=== PATIENT | female | born 1970 | race American Indian/Alaskan Native ===

== ENCOUNTER 2016-12-05 14:17 | Inpatient (IN) | payer MEDICAID ==
[2016-12-05 14:47] VITALS: BMI 30.9
--- NOTE | 2016-12-05 14:58 | ED PDOC ---
Arrival/HPI <Rosetta Clayton - Last Filed: 12/05/16 17:56> - General Historian: Patient - History of Present Illness Quality: Aching Context: Home <HutchinsSkylar green P - Last Filed: 12/05/16 20:21> - General Chief Complaint: Abdominal Pain Time Seen by Provider: 12/05/16 14:57 - History of Present Illness Narrative History of Present Illness (Text): 12/05/16 14:57 This 46 yo female with medical history of Migraine, presents to this ED c/o Migraines since last night. Patient stated a couple hours after eating dinner, she had a single episode of diarrhea with abdominal pain. She became mild nausea, and developed a Migraine SHARP, as per patient. Patient continues with SHARP , mild nausea, and RLQ abdominal pain, and body aches. Denies fever, sob, cp, wheezing, rash, or dizziness. (Skylar Hutchins) Past Medical History - Provider Review Nursing Documentation Reviewed: Yes - Psychiatric Hx Substance Use: No - Surgical History Hx Section: Yes <Skylar Hutchins P - Last Filed: 12/05/16 20:21> Family/Social History - Physician Review Nursing Documentation Reviewed: Yes Family/Social History: No Known Family HX Smoking Status: Never Smoked Hx Alcohol Use: No Hx Substance Use: No <Skylar Hutchins P - Last Filed: 12/05/16 20:21> Allergies/Home Meds <MatildeRosetta - Last Filed: 12/05/16 17:56> <Skylar Hutchins P - Last Filed: 12/05/16 20:21> Allergies/Adverse Reactions: Allergies No Known Allergies Allergy (Verified 12/05/16 14:47) Home Medications: Home Meds Medication Instructions Recorded Confirmed No Known Home Med 12/05/16 12/05/16 Review of Systems - Review of Systems Constitutional: Normal. absent: Fatigue, Weight Change Eyes: Normal ENT: Normal Respiratory: Normal Cardiovascular: Normal Gastrointestinal: Abdominal Pain, Diarrhea, Nausea, Vomiting. absent: Constipation, Hematemesis Genitourinary Female: Normal Musculoskeletal: Normal Skin: Normal Neurological: Headache. absent: Dizziness, Gait Changes, Speech Changes, Facial Droop, Disequilibrium Endocrine: Normal Hemo/Lymphatic: Normal Psychiatric: Normal <Skylar Hutchins P - Last Filed: 12/05/16 20:21> Physical Exam Temperature: Afebrile Blood Pressure: Normal Pulse: Regular Respiratory Rate: Normal Appearance: Positive for: Well-Appearing, Non-Toxic, Comfortable Pain Distress: Mild Mental Status: Positive for: Alert and Oriented X 3 - Systems Exam Head: Present: Atraumatic, Normocephalic Pupils: Present: PERRL Extroacular Muscles: Present: EOMI Conjunctiva: Present: Normal Mouth: Present: Moist Mucous Membranes Neck: Present: Normal Range of Motion. No: Meningeal Signs, MIDLINE TENDERNESS , Paraspinal Tenderness Respiratory/Chest: Present: Clear to Auscultation, Good Air Exchange. No: Respiratory Distress, Accessory Muscle Use, Wheezes, Retracting, Rhonchi Cardiovascular: Present: Regular Rate and Rhythm, Normal S1, S2. No: Murmurs Abdomen: Present: Tenderness (Mild RLQ tenderness.), Normal Bowel Sounds. No: Distention, Peritoneal Signs, Rebound, Guarding Back: Present: Normal Inspection. No: CVA Tenderness Upper Extremity: Present: Normal Inspection, Normal ROM, Neurovascularly Intact , Capillary Refill < 2s. No: Cyanosis, Edema Lower Extremity: Present: Normal Inspection, NORMAL PULSES, Normal ROM, Neurovascularly Intact, Capillary Refill < 2 s. No: Edema Neurological: Present: GCS=15, CN II-XII Intact, Speech Normal Skin: Present: Warm, Dry, Normal Color. No: Rashes Psychiatric: Present: Alert, Oriented x 3 <Skylar Hutchins P - Last Filed: 12/05/16 20:21> Vital Signs Temp Pulse Resp BP Pulse Ox 12/05/16 19:20 98.6 F 78 19 146/78 99 12/05/16 14:47 97.7 F 64 16 140/87 96 Medical Decision Making <Rosetta Clayton - Last Filed: 12/05/16 17:56> Re-evaluation Time: 18:00 Reassessment Condition: Re-examined, Improving,but remains with symptoms - Lab Interpretations Interpretation: Abnormal lab values - EKG Interpretation Interpreted by ED Physician: Yes (sinus bradycardia @ 54 bpm. Normal interval) Type: 12 lead EKG Comparison: No previous EKG avail. <Skylar Hutchins P - Last Filed: 12/05/16 20:21> ED Course and Treatment: 12/05/16 17:[address] Carvajal regarding patient c/o abdominal pain and migraine. I reviewed CT scan result with Dr. Carvajal which reads as appendicitis. She agrees with admission under her service. (Skylar Hutchins) - Lab Interpretations Lab Results: 12/05/16 15:12 12/05/16 15:12 Lab Results 12/05/16 17:40: Blood Type A POSITIVE, Antibody Screen Negative, BBK History Checked No verified bt 12/05/16 17:33: PT 11.0, INR 1.02, APTT 26.2 12/05/16 15:25: Urine Color Yellow, Urine Appearance Clear, Urine pH 6.5, Ur Specific Magnolia 1.020, Urine Protein Negative, Urine Glucose (UA) Negative, Urine Ketones Negative, Urine Blood Small H, Urine Nitrate Negative, Urine Bilirubin Negative, Urine Urobilinogen 0.2, Ur Leukocyte Esterase Negative, Urine RBC 0 - 2, Urine WBC Negative, Ur Epithelial Cells 4 - 5, Urine Bacteria Neg, Urine HCG, Qual Negative 12/05/16 15:15: Influenza Typ A,B (EIA) Negative for flu a/b 12/05/16 15:12: WBC 15.3 H, RBC 4.44, Hgb 11.5 L, Hct 35.7 L, MCV 80.4, MCH 25.9 , MCHC 32.2, RDW 15.6 H, Plt Count 332, MPV 10.0, Gran % 75.2 H, Lymph % (Auto) 19.5 L, Becker % (Auto) 4.3, Eos % (Auto) 0.7 L, Baso % (Auto) 0.3, Gran # 11.55 H , Lymph # 3.0, Becker # 0.7 H, Eos # 0.1, Baso # 0.04, Sodium 139, Potassium 3.4 L , Chloride 102, Carbon Dioxide 23, Anion Gap 17, BUN 15, Creatinine 0.9, Est GFR ( Amer) > 60, Est GFR (Non-Af Amer) > 60, Random Glucose 110, Calcium 9.6, Magnesium 1.9, Total Bilirubin 0.7, AST 22, ALT 26, Alkaline Phosphatase 58, Total Protein 7.4, Albumin 4.1, Globulin 3.3, Albumin/Globulin Ratio 1.2, Lipase 75 - RAD Interpretation Narrative RAD Interpretations (Text): 12/05/16 17:24 Accession No. : [id number] Patient Name / ID : ISABEL KING / [id number] Exam Date : 12/05/2016 16:45:37 ( Approved ) Study Comment : Sex / Age : F / 46Y Creator : WANDA MOTT MD Dictator : WANDA MOTT MD Catering Director : Human Resources Administrator : WANDA MOTT MD Approver2 : Report Date : 12/05/2016 17:12:33 My Comment : PROCEDURE: CT Abdomen and Pelvis with contrast HISTORY: RLQ pain r/o appy COMPARISON: None. TECHNIQUE: Helical CT scan of the abdomen and pelvis was performed after intravenous administration of contrast. Oral contrast was not administered. Contrast dose: Acute appendicitis. No evidence of perforation or abscess. 100 mL Omnipaque 300 Radiation dose: Total exam DLP = 791.38 mGy-cm. FINDINGS: LOWER THORAX: The lung bases are clear. LIVER: There is mild hepatomegaly, Lucas's lobe configuration and diffuse low- attenuation in the liver. There is no intra or extrahepatic biliary ductal dilatation. GALLBLADDER AND BILE DUCTS: There are no calcified gallstones. There is mild pericholecystic fluid. PANCREAS: The pancreas is normal in size and there is homogeneous enhancement without ductal dilatation or focal mass. SPLEEN: The spleen is normal in size and there is homogeneous enhancement. ADRENALS: Both adrenal glands are normal in appearance without discrete nodule. KIDNEYS AND URETERS: Both kidneys are normal in size and there is homogeneous enhancement without solid or cystic mass. There is no hydronephrosis. VASCULATURE: There is normal appearance of the abdominal vasculature. There is no evidence of aortic aneurysm BOWEL: The small bowel loops are normal in caliber. The colon is decompressed. There is no evidence of bowel dilatation or obstruction. APPENDIX: The appendix is fluid filled, distended and measures 12 mm in diameter. There is an appendicolith in the proximal appendix and inflammatory changes surrounding the appendix in the right lower quadrant. PERITONEUM: No free fluid. No free air. LYMPH NODES: No enlarged lymph nodes. BLADDER: Normal in appearance. REPRODUCTIVE: The uterus is normal in size and lobular. BONES: No acute fracture. Within normal limits for the patient's age. OTHER FINDINGS: None. IMPRESSION: Acute appendicitis. No evidence of perforation or abscess. Hepatomegaly and hepatic steatosis. 12/05/16 20:21 CXR: NAD (Hutchins,Nahim P) Radiology Orders: 12/05/16 15:40 ABD & PELVIS IV CONTRAST ONLY [CT] Stat - Medication Orders Current Medication Orders: Hydromorphone HCl (Dilaudid) 1 mg IVP Q4H PRN PRN Reason: Pain, moderate (4-7) Piperacillin Sod/Tazobactam Sod (Zosyn 4.5 Gm In Ns 100ml) 100 mls @ 200 mls/ hr IVPB Q6 MALIHA PRN Reason: Protocol Stop: 12/06/16 06:29 Ondansetron HCl (Zofran Inj) 4 mg IVP Q4 PRN PRN Reason: Pain, moderate (4-7) Pantoprazole Sodium (Protonix Inj) 40 mg IVP DAILY MALIHA Discontinued Medications Diphenhydramine HCl (Benadryl) 25 mg IVP STAT STA Stop: 12/05/16 15:08 Last Admin: 12/05/16 15:25 Dose: 25 MG IVP Administration Document 12/05/16 15:25 SE (Rec: 12/05/16 15:25 [id number]) Charges for Administration # of IVP Administrations 1 Sodium Chloride (Sodium Chloride 0.9%) 1,000 mls @ 1,000 mls/hr IV .Q1H STA Stop: 12/05/16 16:04 Last Admin: 12/05/16 15:21 Dose: 1,000 MLS/HR eMAR Start Stop Document 12/05/16 15:21 SE (Rec: 12/05/16 15:21 [id number]) Intravenous Solution Start Date 12/05/16 Start Time 15:21 Piperacillin Sod/Tazobactam Sod (Zosyn 4.5 Gm In Ns 100ml) 100 mls @ 200 mls/ hr IVPB STAT STA PRN Reason: Protocol Stop: 12/05/16 18:14 Last Admin: 12/05/16 17:50 Dose: 200 MLS/HR Comments: med not scanning, confirmed with second RN , RUSTY Cornejo RN eMAR Start Stop Document 12/05/16 17:50 SE (Rec: 12/05/16 17:50 SE [id number]) Intravenous Solution Start Date 12/05/16 Start Time 17:50 Iohexol (Omnipaque 350 100 Ml) Confirm Administered Dose 350 mg .ROUTE .STK-MED ONE Stop: 12/05/16 16:33 Ketorolac Tromethamine (Toradol) 15 mg IVP STAT STA Stop: 12/05/16 15:09 Last Admin: 12/05/16 15:25 Dose: 15 MG IVP Administration Document 12/05/16 15:25 SE (Rec: 12/05/16 15:25 SE [id number]) Charges for Administration # of IVP Administrations 1 Metoclopramide HCl (Reglan) 10 mg IVP STAT STA Stop: 12/05/16 15:08 Last Admin: 12/05/16 15:25 Dose: 10 MG IVP Administration Document 12/05/16 15:25 SE (Rec: 12/05/16 15:25 SE [id number]) Charges for Administration # of IVP Administrations 1 Morphine Sulfate (Morphine) 2 mg IVP STAT STA Stop: 12/05/16 19:05 Last Admin: 12/05/16 19:10 Dose: 2 MG MAR Pain Assessment Document 12/05/16 19:10 SE (Rec: 12/05/16 19:10 SE [id number]) Pain Reassessment Is this a pain reassessment? No Sleep Is patient sleeping during reassessment? No Presence of Pain Presence of Pain Yes Pain Scale Used Pain Scale Used Numeric IVP Administration Document 12/05/16 19:10 SE (Rec: 12/05/16 19:10 SE [id number]) Charges for Administration # of IVP Administrations 1 Ondansetron HCl (Zofran Inj) 4 mg IVP STAT STA Stop: 12/05/16 19:05 Last Admin: 12/05/16 19:09 Dose: 4 MG IVP Administration Document 12/05/16 19:09 SE (Rec: 12/05/16 19:09 SE [id number]) Charges for Administration # of IVP Administrations 1 - PA / RECORDS MANAGEMENT SPECIALIST / Resident Statement / has reviewed & agrees with the documentation as recorded. / has examined the patient and agrees with the treatment plan. <Rosetta Clayton - Last Filed: 12/05/16 17:56> Disposition/Present on Arrival <Rosetta Clayton - Last Filed: 12/05/16 17:56> - Present on Arrival Any Indicators Present on Arrival: No History of DVT/PE: No History of Uncontrolled Diabetes: No Urinary Catheter: No History of Decub. Ulcer: No History Surgical Site Infection Following: None - Disposition Have Diagnosis and Disposition been Completed?: Yes Disposition Time: 19:38 Patient Plan: Admission <Skylar Hutchins - Last Filed: 12/05/16 20:21> - Disposition Diagnosis: Acute appendicitis
[2016-12-05] MEDS ORDERED: Sodium Chloride 0.9% 1,000 ML IV STA (15:05)
[2016-12-05] MEDS ORDERED: DiphenhydrAMINE 50 mg/ml Inj IVP STA (15:07)
[2016-12-05 15:18] LABS: ADD MANUAL DIFF? NO
[2016-12-05 15:23] LABS: BASO # 0.04 [, K/mm3] (0.0-2.0); BASO % 0.3 % (0.0-3.0); EOS # 0.1 (0.0-0.7); EOS % 0.7 % (1.5-5.0); GRAN # 11.55 (1.4-6.5); GRAN % 75.2 % (50.0-68.0); HEMATOCRIT 35.7 % (36.0-48.0); LYMPH % 19.5 % (22.0-35.0); MEAN CELL VOLUME 80.4 fL (80.0-105.0); MEAN CORPUSCULAR HEMOGLOBIN 25.9 pg (25.0-35.0); MEAN CORPUSCULAR HGB CONC 32.2 g/dl (31.0-37.0); MONO # 0.7 (0.1-0.6); MONO % 4.3 % (1.0-6.0); PLATELET COUNT 332 [, 10^3/uL] (120.0-450.0); RED CELL DISTRIBUTION WIDTH 15.6 % (11.5-14.5); WHITE BLOOD COUNT 15.3 [, 10^3/ul] (4.5-11.0)
[2016-12-05 15:37] LABS: ALB/GLOB RATIO 1.2 (1.1-1.8); ALKALINE PHOSPHATASE 58 U/L (38-133); ALT/SGPT 26 U/L (7-56); AST/SGOT 22 U/L (15-39); BILIRUBIN,TOTAL 0.7 mg/dL (0.2-1.3); BLOOD UREA NITROGEN 15 mg/dL (7-21); CALCIUM 9.6 mg/dL (8.4-10.5); CARBON DIOXIDE 23 mmol/L (21-33); CHLORIDE 102 mmol/L (98-107); GFR AFRICAN-AMERICAN > 60; GLUCOSE,RANDOM 110 mg/dL (70-110); LIPASE 75 U/L (23-300); MAGNESIUM 1.9 mg/dL (1.7-2.2); POTASSIUM 3.4 mmol/L (3.6-5.0); SODIUM 139 mmol/L (132-148); TOTAL PROTEIN 7.4 g/dL (5.8-8.3)
[2016-12-05 15:50] LABS: PH,URINE 6.5 (4.7-8.0); URINE BILIRUBIN NEGATIVE (NEGATIVE); URINE BLOOD SMALL (NEGATIVE); URINE GLUCOSE (UA) NEGATIVE (NEGATIVE); URINE KETONE NEGATIVE (NEGATIVE); URINE LEUKOCYTE ESTERASE NEGATIVE Leu/uL (NEGATIVE); URINE PROTEIN NEGATIVE mg/dL (<30 mg/dL); URINE UROBILINOGEN 0.2 E.U./dL (<1 E.U./dL)
[2016-12-05] MEDS ORDERED: Iohexol 350 MG/100 ML VIAL ONE (16:32)
[2016-12-05 16:40] LABS: URINE APPEARANCE CLEAR (CLEAR); URINE COLOR YELLOW (YELLOW)
[2016-12-05 16:52] LABS: URINE RBC 0 - 2 /hpf (0-2)
[2016-12-05 16:53] LABS: URINE BACTERIA NEG (NEG); URINE WBC NEGATIVE /hpf (0-6)
--- NOTE | 2016-12-05 17:14 | CT ---
PROCEDURE: CT Abdomen and Pelvis with contrast HISTORY: RLQ pain r/o appy COMPARISON: None. TECHNIQUE: Helical CT scan of the abdomen and pelvis was performed after intravenous administration of contrast. Oral contrast was not administered. Contrast dose: Acute appendicitis. No evidence of perforation or abscess. 100 mL Omnipaque 300 Radiation dose: Total exam DLP = 791.38 mGy-cm. FINDINGS: LOWER THORAX: The lung bases are clear. LIVER: There is mild hepatomegaly, Lucas's lobe configuration and diffuse low-attenuation in the liver. There is no intra or extrahepatic biliary ductal dilatation. GALLBLADDER AND BILE DUCTS: There are no calcified gallstones. There is mild pericholecystic fluid. PANCREAS: The pancreas is normal in size and there is homogeneous enhancement without ductal dilatation or focal mass. SPLEEN: The spleen is normal in size and there is homogeneous enhancement. ADRENALS: Both adrenal glands are normal in appearance without discrete nodule. KIDNEYS AND URETERS: Both kidneys are normal in size and there is homogeneous enhancement without solid or cystic mass. There is no hydronephrosis. VASCULATURE: There is normal appearance of the abdominal vasculature. There is no evidence of aortic aneurysm BOWEL: The small bowel loops are normal in caliber. The colon is decompressed. There is no evidence of bowel dilatation or obstruction. APPENDIX: The appendix is fluid filled, distended and measures 12 mm in diameter. There is an appendicolith in the proximal appendix and inflammatory changes surrounding the appendix in the right lower quadrant. PERITONEUM: No free fluid. No free air. LYMPH NODES: No enlarged lymph nodes. BLADDER: Normal in appearance. REPRODUCTIVE: The uterus is normal in size and lobular. BONES: No acute fracture. Within normal limits for the patient's age. OTHER FINDINGS: None. IMPRESSION: Acute appendicitis. No evidence of perforation or abscess. Hepatomegaly and hepatic steatosis.
[2016-12-05] MEDS ORDERED: Piperacill/Tazo 4.5gm in NS 100 ML IVPB STA (17:45)
[2016-12-05 17:54] LABS: INR 1.02 (0.93-1.08); PARTIAL THROMBOPLASTIN TIME 26.2 Seconds (23.7-30.8)
[2016-12-05] MEDS ORDERED: Morphine 2 mg/ml ISec IVP STA (19:04)
--- NOTE | 2016-12-05 19:42 | CP.PCM.HP ---
History of Present Illness - History of Present Illness History of Present Illness: HISTORY AND PHYSICAL FOR DR. GUTIERREZ 46F presents to [facility] ED with abdominal pain that started yesterday night. Patient describes pain as uncomfortable, localized in the lower abdomen and no radiation. Patient states pain is associated with nausea/vomiting/diarrhea. She denies fevers, chill. She states she was not able to tolerate the food she ate. earlier this morning. Patient is also associated with headache. PMH: Migraines PSH: C-sec (5years ago) Social: denies tobacco, alcohol, illicit drugs Allergies: NKDA Present on Admission - Present on Admission Any Indicators Present on Admission: No Past Patient History - Past Social History Smoking Status: Never Smoked - PSYCHIATRIC Hx Substance Use: No - SURGICAL HISTORY Hx Section: Yes Meds Allergies/Adverse Reactions: Allergies Allergy/AdvReac Type Severity Reaction Status Date / Time No Known Allergies Allergy Verified 12/05/16 14:47 Physical Exam - Constitutional Appears: Non-toxic, No Acute Distress - Head Exam Head Exam: ATRAUMATIC - Eye Exam Eye Exam: EOMI, PERRL Pupil Exam: PERRL - ENT Exam ENT Exam: Mucous Membranes Moist - Respiratory Exam Respiratory Exam: Clear to Auscultation Bilateral, NORMAL BREATHING PATTERN - Cardiovascular Exam Cardiovascular Exam: REGULAR RHYTHM, +S1, +S2 - GI/Abdominal Exam GI & Abdominal Exam: Normal Bowel Sounds, Soft, Tenderness (mainly on the RLQ, positive mcburney sign and obturator sign). absent: Distended, Firm, Guarding, Hernia, Rebound, Rigid - Extremities Exam Extremities exam: Positive for: normal inspection - Neurological Exam Neurological exam: Alert, Oriented x3 - Psychiatric Exam Psychiatric exam: Normal Affect, Normal Mood - Skin Skin Exam: Dry, Intact, Normal Color, Warm Results - Vital Signs Recent Vital Signs: Last Vital Signs Temp 98.6 F 12/05/16 19:20 Pulse 78 12/05/16 19:20 Resp 19 12/05/16 19:20 BP 146/78 12/05/16 19:20 Pulse Ox 99 12/05/16 19:20 - Labs Result Diagrams: 12/05/16 15:12 12/05/16 15:12 Labs: Laboratory Results - last 24 hr 12/05/16 18:11 Blood Type Confirm A POSITIVE Assessment & Plan - Assessment and Plan (Free Text) Assessment: 46F presents with abdominal pain, due to acute appendicitis CT scan: [id number], inflammation surrounding the appendix, no perf no abscess Plan: -NPO, pain control, Antibiotics -pre-op patient -OR tonight for laparoscopic appendectomy Discussed with Dr. Wei Gu, PGY1
[2016-12-05] MEDS ORDERED: HYDROmorphone 1 mg/ml ISec IVP PRN (20:03)
[2016-12-05] MEDS ORDERED: Propofol 10 mg/ml Inj (20 ML) ONE (20:39)
[2016-12-05] MEDS ORDERED: Rocuronium 10 mg/ml (5 ml) ONE (20:40)
[2016-12-05] MEDS ORDERED: Lidocaine 1% Inj (20ml) ONE (20:40)
[2016-12-05] MEDS ORDERED: Succinylcholine 200 mg/10 ml Inj IV ONE (20:43)
[2016-12-05] MEDS ORDERED: Liquid Adhesive TOP ONE (22:09)
[2016-12-05] MEDS ORDERED: Lactated Ringer's 1,000 ML IV SCH (22:30)
[2016-12-05] MEDS ORDERED: HYDROmorphone 0.5 mg/0.5 ml ISec IVP PRN (22:30)
[2016-12-05] MEDS ORDERED: Oxycodone/Acetaminophen 5/325 mg Tab PO PRN (22:31)
--- NOTE | 2016-12-05 22:31 | PCM.SURG1 ---
Surgeon's Initial Post Op Note - Surgeon's Notes Surgeon: Wei Temperer: Brittanie Pre-Operative Diagnosis: Acute appendicitis Operative Findings: inflamed appendix Post-Operative Diagnosis: acute appendicitis Operation Performed: laparoscopic appendectomy Specimen/Specimens Removed: appendix Estimated Blood Loss: EBL {In ML}: 30 Date of Surgery/Procedure: 12/05/16 Time of Surgery/Procedure: 21:30
[2016-12-06] MEDS: Piperacill/Tazo 4.5gm in NS 100 ML IVPB SCH ×2 (00:36→05:20)
[2016-12-06 04:29] VITALS: PULSE 58
--- NOTE | 2016-12-06 06:25 | CP.PCM.PN ---
Subjective - Date & Time of Evaluation Date of Evaluation: 12/06/16 Time of Evaluation: 06:23 - Subjective Subjective: SURGERY NOTE FOR DR. GUTIERREZ 46F seen and examined at bedside. AUDELIA. Patient is resting comfortably. Admits to mild abdominal pain, denies nausea/vomiting, tolerating her clear liquid diet. Denies flatus/BM. Objective - Vital Signs/Intake and Output Vital Signs (last 24 hours): Temp Pulse Resp BP Pulse Ox 97.4 F L 58 L 18 123/81 99 12/05/16 21:25 12/05/16 21:25 12/05/16 21:25 12/05/16 21:25 12/05/16 19:20 Intake and Output: 12/05/16 12/06/16 18:59 06:59 Intake Total 240 Balance 240 - Medications Medications: Current Medications Heparin Sodium (Porcine) (Heparin) 5,000 units SC Q12 MALIHA PRN Reason: Protocol Piperacillin Sod/Tazobactam Sod (Zosyn 4.5 Gm In Ns 100ml) 100 mls @ 200 mls/ hr IVPB Q6 MALIHA PRN Reason: Protocol Stop: 12/06/16 06:29 Last Admin: 12/06/16 05:20 Dose: 200 mls/hr Ondansetron HCl (Zofran Inj) 4 mg IVP Q4 PRN PRN Reason: Pain, moderate (4-7) Oxycodone/Acetaminophen (Percocet 5/325 Mg Tab) 1 tab PO Q4H PRN PRN Reason: Pain, moderate (4-7) Stop: 12/08/16 22:32 Pantoprazole Sodium (Protonix Inj) 40 mg IVP DAILY [facility] - Labs Labs: PT 11.0 Seconds (9.9-11.8) 12/05/16 17:33 INR 1.02 (0.93-1.08) 12/05/16 17:33 APTT 26.2 Seconds (23.7-30.8) 12/05/16 17:33 - Constitutional Appears: Non-toxic, No Acute Distress - Head Exam Head Exam: ATRAUMATIC - Eye Exam Eye Exam: EOMI Pupil Exam: PERRL - ENT Exam ENT Exam: Mucous Membranes Moist - Respiratory Exam Respiratory Exam: Clear to Ausculation Bilateral, NORMAL BREATHING PATTERN - Cardiovascular Exam Cardiovascular Exam: REGULAR RHYTHM, +S1, +S2 - GI/Abdominal Exam GI & Abdominal Exam: Soft, Tenderness. absent: Distended, Firm, Guarding, Rigid , Rebound Additional comments: Incisions clean dry intact - Neurological Exam Neurological Exam: Alert, Awake Assessment and Plan - Assessment and Plan (Free Text) Assessment: 46F s/p Lap Appendectomy POD1 for acute appendicitis Plan: - clears liquid diet - serial abd exams - monitor vitals/Labs - await bowel function - Incentive spirometer Furthers recs discuss with Dr. Wei Gu, PGY1
[2016-12-06 07:35] LABS: HEMATOCRIT 31.8 % (36.0-48.0); MEAN CELL VOLUME 78.7 fL (80.0-105.0); MEAN CORPUSCULAR HEMOGLOBIN 25.5 pg (25.0-35.0); MEAN CORPUSCULAR HGB CONC 32.4 g/dl (31.0-37.0); MEAN PLATELET VOLUME 9.5 fl (7.0-11.0); PLATELET COUNT 266 [, 10^3/uL] (120.0-450.0); RED CELL DISTRIBUTION WIDTH 15.5 % (11.5-14.5); WHITE BLOOD COUNT 19.4 [, 10^3/ul] (4.5-11.0)
[2016-12-06 07:37] LABS: ADD MANUAL DIFF? YES
[2016-12-06 07:51] VITALS: BP 105/64; RESP 16; TEMP 98.2; O2SAT 98
[2016-12-06 08:16] LABS: ALB/GLOB RATIO 1.2 (1.1-1.8); ALKALINE PHOSPHATASE 46 U/L (38-133); ALT/SGPT 33 U/L (7-56); AST/SGOT 30 U/L (15-39); BILIRUBIN,TOTAL 1.7 mg/dL (0.2-1.3); BLOOD UREA NITROGEN 9 mg/dL (7-21); CALCIUM 8.2 mg/dL (8.4-10.5); CARBON DIOXIDE 22 mmol/L (21-33); CHLORIDE 101 mmol/L (98-107); GFR AFRICAN-AMERICAN > 60; GLUCOSE,RANDOM 153 mg/dL (70-110); POTASSIUM 3.8 mmol/L (3.6-5.0); SODIUM 134 mmol/L (132-148); TOTAL PROTEIN 6.5 g/dL (5.8-8.3)
[2016-12-06 08:33] LABS: EOSINOPHIL 1 % (0.0-3.0); NEUTROPHIL 90 % (50.0-70.0)
[2016-12-06 08:34] LABS: PLATELET ESTIMATE NORMAL (NORMAL)
--- NOTE | 2016-12-06 09:22 | OP ---
PROCEDURE DATE: 12/05/2016 SURGEON: Dr. Carvajal CHARTER COACH DRIVER: Dr. Gu ANESTHESIA: General, Dr. Villareal. PREOPERATIVE DIAGNOSIS: Acute appendicitis. POSTOPERATIVE DIAGNOSIS: Acute appendicitis. PROCEDURE: Laparoscopic appendectomy. DESCRIPTION OF OPERATION: With the patient in the supine position under adequate general anesthesia, the abdomen was prepped and draped in the usual sterile manner. Veress needle puncture was performed at the umbilicus with insufflation to 15 cm water pressure of CO2 and a 5 mm laparoscopic trocar was inserted via an infraumbilical incision. Under direct vision, 5 mm and 12 mm trocars were inserted in the left lower quadrant. The cecum was identified. It appeared somewhat redundant and dilated. The cecum was elevated to identify the appendix, laying medial to the cecum. The appendix was noted to be elongated and dilated and as it was elevated, there was noted to be acute inflammation, primarily in the proximal portion of the appendix. The mesoappendix was dissected and divided with an Endo-BERNARDINO stapler with additional bands and the area of the appendiceal artery being hemoclipped as well. The appendix itself was then divided close to the cecum using an Endo BERNARDINO stapler. The appendix was placed in a specimen retrieval bag and removed via the 12 mm port site. The operative site was examined for hemostasis and the pelvis was irrigated and suctioned. The pneumoperitoneum was released and the trocars were removed. The 12 mm port site was closed with a [id number] fascial suture of 0 Vicryl. All incisions were closed with 4-0 Monocryl subcuticular sutures and Steri-Strips. Dry sterile dressings were applied. The patient tolerated the procedure well and transferred to the recovery room in stable condition. Estimated blood loss for the procedure was 30 mL. Isi Carvajal MD cc: 58 TT: 12/06/2016 09:21:53 en MTDD
--- NOTE | 2016-12-06 10:03 | CP.PCM.DIS ---
Provider - Provider Date of Admission: 12/05/16 17:56 Attending physician: Isi Carvajal MD Primary care physician: Justino Dick, DNP, [employer] Time Spent in preparation of Discharge (in minutes): 15 Hospital Course - Lab Results Lab Results: Most Recent Lab Values WBC 19.4 10^3/ul (4.5-11.0) H D 12/06/16 07:20 RBC 4.04 10^6/uL (3.5-6.1) 12/06/16 07:20 Hgb 10.3 gm/dL (12.0-16.0) L 12/06/16 07:20 Hct 31.8 % (36.0-48.0) L 12/06/16 07:20 MCV 78.7 fL (80.0-105.0) L 12/06/16 07:20 MCH 25.5 pg (25.0-35.0) 12/06/16 07:20 MCHC 32.4 g/dl (31.0-37.0) 12/06/16 07:20 RDW 15.5 % (11.5-14.5) H 12/06/16 07:20 Plt Count 266 10^3/uL (120.0-450.0) 12/06/16 07:20 MPV 9.5 fl (7.0-11.0) 12/06/16 07:20 Gran % 75.2 % (50.0-68.0) H 12/05/16 15:12 Lymph % (Auto) 19.5 % (22.0-35.0) L 12/05/16 15:12 [place] % (Auto) 4.3 % (1.0-6.0) 12/05/16 15:12 Eos % (Auto) 0.7 % (1.5-5.0) L 12/05/16 15:12 Baso % (Auto) 0.3 % (0.0-3.0) 12/05/16 15:12 Gran # 11.55 (1.4-6.5) H 12/05/16 15:12 Lymph # 3.0 (1.2-3.4) 12/05/16 15:12 [place]he # 0.7 (0.1-0.6) H 12/05/16 15:12 Eos # 0.1 (0.0-0.7) 12/05/16 15:12 Baso # 0.04 K/mm3 (0.0-2.0) 12/05/16 15:12 Neutrophils % (Manual) 90 % (50.0-70.0) H 12/06/16 07:20 Lymphocytes % (Manual) 8 % (22.0-35.0) L 12/06/16 07:20 Monocytes % (Manual) 1 % (1.0-6.0) 12/06/16 07:20 Eosinophils % (Manual) 1 % (0.0-3.0) 12/06/16 07:20 Platelet Evaluation Normal (NORMAL) 12/06/16 07:20 PT 11.0 Seconds (9.9-11.8) 12/05/16 17:33 INR 1.02 (0.93-1.08) 12/05/16 17:33 APTT 26.2 Seconds (23.7-30.8) 12/05/16 17:33 Sodium 134 mmol/L (132-148) 12/06/16 07:20 Potassium 3.8 mmol/L (3.6-5.0) 12/06/16 07:20 Chloride 101 mmol/L (98-107) 12/06/16 07:20 Carbon Dioxide 22 mmol/L (21-33) 12/06/16 07:20 Anion Gap 15 (10-20) 12/06/16 07:20 BUN 9 mg/dL (7-21) 12/06/16 07:20 Creatinine 0.8 mg/dL (0.5-1.4) 12/06/16 07:20 Est GFR ( Amer) > 60 12/06/16 07:20 Est GFR (Non-Af Amer) > 60 12/06/16 07:20 Random Glucose 153 mg/dL (70-110) H 12/06/16 07:20 Calcium 8.2 mg/dL (8.4-10.5) L 12/06/16 07:20 Magnesium 1.9 mg/dL (1.7-2.2) 12/05/16 15:12 Total Bilirubin 1.7 mg/dL (0.2-1.3) H 12/06/16 07:20 AST 30 U/L (15-39) 12/06/16 07:20 ALT 33 U/L (7-56) 12/06/16 07:20 Alkaline Phosphatase 46 U/L (38-133) 12/06/16 07:20 Total Protein 6.5 g/dL (5.8-8.3) 12/06/16 07:20 Albumin 3.5 g/dL (3.0-4.8) 12/06/16 07:20 Globulin 3.0 gm/dL 12/06/16 07:20 Albumin/Globulin Ratio 1.2 (1.1-1.8) 12/06/16 07:20 Lipase 75 U/L (23-300) 12/05/16 15:12 Urine Color Yellow (YELLOW) 12/05/16 15:25 Urine Appearance Clear (CLEAR) 12/05/16 15:25 Urine pH 6.5 (4.7-8.0) 12/05/16 15:25 Ur Specific [place] 1.020 (1.005-1.035) 12/05/16 15:25 Urine Protein Negative mg/dL (<30 mg/dL) 12/05/16 15:25 Urine Glucose (UA) Negative mg/dL (NEGATIVE) 12/05/16 15:25 Urine Ketones Negative mg/dL (NEGATIVE) 12/05/16 15:25 Urine Blood Small (NEGATIVE) H 12/05/16 15:25 Urine Nitrate Negative (NEGATIVE) 12/05/16 15:25 Urine Bilirubin Negative (NEGATIVE) 12/05/16 15:25 Urine Urobilinogen 0.2 E.U./dL (<1 E.U./dL) 12/05/16 15:25 Ur Leukocyte Esterase Negative Humberto/uL (NEGATIVE) 12/05/16 15:25 Urine RBC 0 - 2 /hpf (0-2) 12/05/16 15:25 Urine WBC Negative /hpf (0-6) 12/05/16 15:25 Ur Epithelial Cells 4 - 5 /hpf (0-5) 12/05/16 15:25 Urine Bacteria Neg (NEG) 12/05/16 15:25 Urine HCG, Qual Negative (NEGATIVE) 12/05/16 15:25 Influenza Typ A,B (EIA) Negative for flu a/b (NEGATIVE) 12/05/16 15:15 Blood Type A POSITIVE 12/05/16 17:40 Blood Type Confirm A POSITIVE 12/05/16 18:11 Antibody Screen Negative 12/05/16 17:40 BBK History Checked No verified bt 12/05/16 17:40 - Hospital Course Hospital Course: Admitted with diagnosis of acute appendicitis, to OR for laparoscopic appendectomy, tolerating diet postop, stable - Date & Time of H&P Date of H&P: 12/05/16 Time of H&P: 19:00 Discharge Exam - Head Exam Head Exam: ATRAUMATIC - Eye Exam Eye Exam: Normal appearance - ENT Exam ENT Exam: Mucous Membranes Moist - Neck Exam Neck exam: Full Rom - Respiratory Exam Respiratory Exam: NORMAL BREATHING PATTERN - Cardiovascular Exam Cardiovascular Exam: REGULAR RHYTHM - GI/Abdominal Exam GI & Abdominal Exam: Diminished Bowel Sounds, Distended, Soft Additional comments: Dressings dry and intact, incisional tenderness Discharge Plan - Follow Up Plan Condition: GOOD Disposition: HOME/ ROUTINE Referrals: Justino Dick, HAYDEE, [employer]OR [Primary Care Provider] - Isi Carvajal MD [Staff Provider] - Clinical Quality Measures - Date & Time of Discharge Summary Date of Discharge Summary: 12/06/16 Time of Discharge Summary: 10:05
--- NOTE | 2016-12-06 11:04 | RAD ---
HISTORY: Admission COMPARISON: No prior. FINDINGS: LUNGS: The lungs are well inflated and clear. PLEURA: No significant pleural effusion identified, no pneumothorax apparent. CARDIOVASCULAR: Normal. OSSEOUS STRUCTURES: No significant abnormalities. VISUALIZED UPPER ABDOMEN: Normal. OTHER FINDINGS: None. IMPRESSION: No active pulmonary disease.
--- NOTE | 2016-12-06 18:29 | CARD ---
APPROVED REPORT EKG Measurement Heart [id number] <Conclusion> Sinus bradycardia Otherwise normal ECG
== END 2016-12-06 12:59 | disposition home or self-care (01) | DRG 883 ==
LOC: ED 14:17 → ERH 17:56 → 5RSO 20:34
PROVIDERS: ADMIT Specialist; ATTEND Specialist
PROC: 0DTJ4ZZ Resection of Appendix, Percutaneous Endoscopic Approach (ICD-10-PCS; principal; 2016-12-05 21:00)
DX: K35.80 Unspecified acute appendicitis (principal); G43.909 Migraine, unspecified, not intractable, without status migrainosus